=== PATIENT | male | born 1995 | race Caucasian/White ===

== ENCOUNTER 2018-08-25 21:41 | Emergency (ER) | payer OTHER, MEDICAID ==
[2018-08-25] MEDS ORDERED: Lidocaine 1%* 5 ML VIAL INJ ONE (21:54)
[2018-08-25 21:55] VITALS: BP 164/88
--- NOTE | 2018-08-25 21:58 | ED ---
Skin Complaint - HPI Summary HPI Summary: developed swelling and pain in the right axilla beginning yesterday, thought it might be a pimple . father tried squeezing it in order to express pus - History of Current Complaint Chief Complaint: UCSkin Time Seen by Provider: 08/25/18 21:53 Stated Complaint: SKIN COMPLAINT Hx Obtained From: Patient, Family/Technical Services Rep Onset/Duration: Started Days Ago Timing: Constant Onset Severity: Mild Current Severity: Mild Pain Intensity: 2 Skin Location: Discrete, Other: - right axilla - Allergy/Home Medications Allergies/Adverse Reactions: Allergies Allergy/AdvReac Type Severity Reaction Status Date / Time No Known Allergies Allergy Verified 08/25/18 21:54 PMH/Surg Hx/FS Hx/Imm Hx Previously Healthy: Yes Neurological History: Reports: Other Neuro Impairments/Disorders - hx. of cognitive deficit Infectious Disease History: No Infectious Disease History: Denies: Traveled Outside the [place] in Last 30 Days - Social History Alcohol Use: None Substance Use Type: Reports: None Smoking Status (MU): Never Smoked Tobacco Review of Systems Constitutional: Negative Eyes: Negative ENT: Negative Cardiovascular: Negative Respiratory: Negative Gastrointestinal: Negative Skin: Other - developed swelling and redness under right axilla All Other Systems Reviewed And Are Negative: Yes Physical Exam Triage Information Reviewed: Yes Vital Signs On Initial Exam: Initial Vitals Temp Pulse Resp BP Pulse Ox 36.9 C 90 18 164/88 100 08/25/18 21:48 08/25/18 21:48 08/25/18 21:48 08/25/18 21:48 08/25/18 21:48 Vital Signs Reviewed: Yes Appearance: Positive: Well-Appearing Skin: Positive: Warm, Dry, Other - right axillary area with discrete area of swelling with an area of pointing scalpel used to open area after premedicated with 1% lidocaine Neck: Positive: Supple Respiratory/Lung Sounds: Positive: Clear to Auscultation Diagnostics - Vital Signs Vital Signs Temp Pulse Resp BP Pulse Ox 08/25/18 21:48 36.9 C 90 18 164/88 100 - Laboratory Lab Statement: Any lab studies that have been ordered have been reviewed, and results considered in the medical decision making process. Course/Dx - Diagnoses Provider Diagnoses: Abscess Discharge - Sign-Out/Discharge Documenting (check all that apply): Patient Departure All imaging exams completed and their final reports reviewed: Yes - Discharge Plan Condition: Fair Disposition: HOME Prescriptions: Sulfamethox/Trimethoprim DS* [Bactrim DS 800/160 TAB*] 1 tab PO BID #14 tab Patient Education Materials: Abscess (ED) Referrals: Sean Ayoub MD [Primary Care Provider] - - Billing Disposition and Condition Condition: FAIR Disposition: Home
[2018-08-25] MEDS ORDERED: Sulfamethox/Trimethoprim DS 800/160* TAB PO ONE (22:08)
== END 2018-08-25 22:14 | disposition home or self-care (01) ==
LOC: UCCORT 21:41
DX: L02.411 Cutaneous abscess of right axilla (principal)
CPT/HCPCS: 10060; 87070; 87077; 87186; 87205; 87640; 87641; 99212; A9270-GY; G0463

== ENCOUNTER 2018-10-08 21:50 | Emergency (ER) | payer OTHER, MEDICAID ==
[2018-10-08] MEDS ORDERED: Amoxicillin/Clavulanate TAB* 875 MG PO ONE ×2 (22:03→22:04)
[2018-10-08 22:04] VITALS: BP 151/82
--- NOTE | 2018-10-08 22:07 | UC ---
Throat Pain/[place]al [place] HPI - HPI Summary HPI Summary: 23-year-old male comes in with a chief complaint of fever sore throat and generalized illness. Patient's been sick for more than a week. The rhinorrhea is yellow. Decreased by mouth intake but is not vomiting. Bowel movements normal. - History of Current Complaint Stated Complaint: COUGH,FEVER,HEADACHE Time Seen by Provider: 10/08/18 21:53 - Allergies/Home Medications Allergies/Adverse Reactions: Allergies Allergy/AdvReac Type Severity Reaction Status Date / Time No Known Allergies Allergy Verified 08/25/18 21:54 Home Medications: Home Medications Guaifenesin/Dextromethorphan [Mucinex Fast-Max Dm Max 20-400 mg/20Ml] 1 liq PO ONCE PRN 10/08/18 [History Confirmed 10/08/18] Ibuprofen TAB* [Advil TAB*] 600 mg PO Q6H PRN 10/08/18 [History Confirmed ] PMH/Surg Hx/FS Hx/Imm Hx Previously Healthy: Yes - Surgical History Surgical History: None - Family History Known Family History: Positive: Non-Contributory - Social History Alcohol Use: None Substance Use Type: None Smoking Status (MU): Never Smoked Tobacco Review of Systems All Other Systems Reviewed And Are Negative: Yes Constitutional: Positive: Fever Skin: Positive: Negative Eyes: Positive: Negative ENT: Positive: Sore Throat, Nasal Discharge, Sinus Congestion Respiratory: Positive: Negative Cardiovascular: Positive: Negative Gastrointestinal: Positive: Negative Motor: Positive: Negative Neurovascular: Positive: Negative Musculoskeletal: Positive: Negative Neurological: Positive: Negative Psychological: Positive: Negative Is Patient Immunocompromised?: No Physical Exam Triage Information Reviewed: Yes Appearance: No Pain Distress, Well-Nourished, Ill-Appearing - MILD Vital Signs Reviewed: Yes Eye Exam: Normal Eyes: Positive: Conjunctiva Clear ENT: Positive: Pharyngeal erythema, Nasal congestion, Nasal drainage, TMs normal Neck exam: Normal Neck: Positive: Supple Respiratory Exam: Normal Respiratory: Positive: Lungs clear, Normal breath sounds, No respiratory distress Cardiovascular Exam: Normal Cardiovascular: Positive: RRR Musculoskeletal Exam: Normal Musculoskeletal: Positive: Strength Intact, ROM Intact Neurological Exam: Normal Neurological: Positive: Alert, Muscle Tone Normal Psychological Exam: Normal Psychological: Positive: Normal Response To Family, Age Appropriate Behavior Skin Exam: Normal Throat Pain/Nasal Course/Dx - Course Course Of Treatment: DISCUSSED VIRAL VERSES BACTERIAL INFECTIONS AND THE ROLE OF ANTIBIOTICS. THE PATIENT PREFERS TO BE ON ANTIBIOTICS AT THIS TIME. - Differential Dx/Diagnosis Provider Diagnoses: SINUSITIS Discharge - Sign-Out/Discharge Documenting (check all that apply): Patient Departure All imaging exams completed and their final reports reviewed: No Studies - Discharge Plan Condition: Stable Disposition: HOME Prescriptions: Amoxicillin/Clavulanate TAB* [Augmentin TAB 875*] 875 mg PO BID #18 tab Patient Education Materials: Sinusitis (ED) Referrals: Sean Ayoub MD [Primary Care Provider] - Additional Instructions: FOLLOW UP WITH YOUR DOCTOR IF NOT COMPLETELY IMPROVED. GET RECHECKED FOR ANY WORSENING OF YOUR CONDITION OR QUESTIONS OR CONCERNS. - Billing Disposition and Condition Condition: STABLE Disposition: Home
== END 2018-10-08 22:12 | disposition home or self-care (01) ==
LOC: UCCORT 21:50
DX: J32.9 Chronic sinusitis, unspecified (principal); J02.9 Acute pharyngitis, unspecified
CPT/HCPCS: 99212; A9270-GY; G0463

== ENCOUNTER 2019-01-27 17:50 | Emergency (ER) | payer BC, MEDICAID ==
--- OUTSIDE RECORDS SUMMARY | 2019-01-27 18:04 | XMS REPORT ---
:1995 Author Care Team Providers Name Role Phone Unavailable Unavailable Unavailable Problems Condition Condition Condition Status Onset Resolution Last Treating Comments Name Details Category Date Date Treatment Clinician Date Mild Active 2017-06-19 Intellectual 00:00:00 Disability Allergies, Adverse Reactions, Alerts This patient has no known allergies or adverse reactions. Social History Smoking Status Start Date Stop Date Unknown if ever smoked Social History Observation Description Sex Male Medications This patient has no known medications. Vital Signs This patient has no known vital signs. Procedures This patient has no known procedures. Reason for Referral This patient has no known reason for referral. Chief Complaint and Reason for Visit This patient event has no chief complaint or reason for visit specified. Results This patient has no known results. Assessments This patient has no known assessments.
[2019-01-27 18:58] VITALS: BP 164/84
--- NOTE | 2019-01-27 20:10 | UC ---
Headache HPI - HPI Summary HPI Summary: 23 yo male with a 4 day hx of frontal ANDERS no trauma no n/v no photo/phonophobia no hx migraines + fhx of migraines no mental status changes reported no f/c - History Of Current Complaint Chief Complaint: UCHeadache Stated Complaint: RECURRING HEADACHES Time Seen by Provider: 01/27/19 19:27 Hx Obtained From: Patient Onset/Duration: Gradual Onset, Lasting Days Onset Of Symptoms: Gradual Initially Headache Was: Mild Currently Pain Is: Mild Pain Intensity: 4 Pain Scale Used: 0-10 Numeric Timing: Constant Character: Unable To Describe Location of Headache: Frontal Aggravating Factor(s): Nothing Allevating Factor(s): Nothing Associated Signs And Symptoms: Negative: Dizziness, Seizure, Nausea, Vomiting, Sinus Pressure, Fever, Neck Pain, Neck Stiffness, Decreased LOC, Visual Changes - Allergies/Home Medications Allergies/Adverse Reactions: Allergies Allergy/AdvReac Type Severity Reaction Status Date / Time No Known Allergies Allergy Verified 01/27/19 18:47 Home Medications: Home Medications Aspirin/Acetaminophen/Caffeine [Excedrin Migraine Caplet] 2 each PO ONCE PRN 10/07 [History Confirmed 01/27/19] PMH/Surg Hx/FS Hx/Imm Hx Previously Healthy: Yes - Surgical History Surgical History: None - Family History Known Family History: Positive: Other - + fhx of migraines, Non-Contributory - Social History Alcohol Use: None Substance Use Type: None Smoking Status (MU): Never Smoked Tobacco Review of Systems All Other Systems Reviewed And Are Negative: Yes Constitutional: Positive: Negative Skin: Positive: Negative Eyes: Positive: Negative ENT: Positive: Negative Respiratory: Positive: Negative Cardiovascular: Positive: Negative Gastrointestinal: Positive: Negative Genitourinary: Positive: Negative Motor: Positive: Negative Neurovascular: Positive: Negative Musculoskeletal: Positive: Negative Neurological: Positive: Headache Psychological: Positive: Negative Physical Exam Triage Information Reviewed: Yes Appearance: Well-Appearing, No Pain Distress, Well-Nourished Vital Signs: Initial Vital Signs Temp 97.9 F 01/27/19 18:49 Pulse 97 01/27/19 18:49 Resp 20 01/27/19 18:49 BP 164/84 01/27/19 18:49 Pulse Ox 99 01/27/19 18:49 Vital Signs Reviewed: Yes Eyes: Positive: Conjunctiva Clear, Other: - eomi/perrl, fundi benign ENT: Positive: Hearing grossly normal, Uvula midline. Negative: Nasal congestion, Nasal drainage, Tonsillar swelling, Tonsillar exudate, Hoarse voice Dental Exam: Normal Neck: Positive: Supple, Nontender, No Lymphadenopathy Respiratory: Positive: Lungs clear, Normal breath sounds, No respiratory distress, No accessory muscle use Cardiovascular: Positive: RRR, No Murmur Musculoskeletal: Positive: ROM Intact, No Edema Neurological: Positive: Alert, Other: - cn2-12 intact, strenght 5/5, normal gait Psychological Exam: Normal Skin Exam: Normal Diagnostics - Radiology No standard instances Radiology Interpretation Completed By: Radiologist Summary of Radiographic Findings: CT negative Headache Course/Dx - Differential Dx/Diagnosis Provider Diagnosis: Headache Discharge - Sign-Out/Discharge Documenting (check all that apply): Patient Departure All imaging exams completed and their final reports reviewed: Yes - Discharge Plan Condition: Stable Disposition: HOME Patient Education Materials: Acute Headache (ED) Referrals: Sean Ayoub MD [Primary Care Provider] - As Soon As Possible Additional Instructions: CT negative I suggest advil or aleve for headache - Billing Disposition and Condition Condition: STABLE Disposition: Home
== END 2019-01-27 21:06 | disposition home or self-care (01) ==
LOC: UCCORT 17:50
DX: R51 Headache (principal)
CPT/HCPCS: 70450; 99211; G0463